=== PATIENT | female | born 1950 | race Caucasian/White ===

== ENCOUNTER 2017-08-15 08:09 | Inpatient (IN) | payer MEDICARE ==
[~2017-08-15] VITALS: Ht 160 cm; Wt 88.5 kg
[~2017-08-15 08:09] MED LIST: ASPIR 8181 M1 PO
[2017-08-15 08:10] VITALS: BP 148/72
[2017-08-15] MEDS ORDERED: BLOOD PRESSURE MED (08:13)
[2017-08-15] MEDS ORDERED: CHOLESTEROL MED (08:13)
[2017-08-15 09:56] LABS: HEMATOCRIT 42.3 % (37.0-47.0); HEMOGLOBIN 14.3 gm/dL (12.0-15.0); MCH 29.3 pg (26.0-34.0); MCHC 33.9 g/dL (28.0-37.0); MCV 86.5 fL (80.0-100.0); MPV 8.1 fl. (7.2-11.1); RBC 4.89 mil/uL (4.20-5.00); RDW-CV 13.3 % (10.5-14.5); WBC 12.5 thou/uL (4.0-11.0)
[2017-08-15 10:05] LABS: ANION GAP 8 mmol/L (7-16); BUN 17 mg/dL (7-18); CALCIUM 8.8 mg/dL (8.5-10.1); CHLORIDE 105 mmol/L (98-107); CO2 27 mmol/L (21-32); CREATININE 0.8 mg/dL (0.6-1.3); GLUCOSE 161 mg/dL (70-99); POTASSIUM 4.2 mmol/L (3.5-5.1); SODIUM 140 mmol/L (136-145)
[2017-08-15 10:12] LABS: ALBUMIN 3.6 g/dL (3.4-5.0); ALKALINE PHOSPHATASE 86 U/L (46-116); SGOT 24 U/L (15-37); SGPT 42 U/L (30-65); TOTAL BILIRUBIN 0.6 mg/dL (<0.1-1.0); TOTAL PROTEIN 7.2 g/dL (6.4-8.2); TROPONIN-I LEVEL <0.06 ng/mL (<0.06)
[2017-08-15 12:50] VITALS: BP 127/64
[2017-08-15 12:53] VITALS: BP 136/64
[2017-08-15 13:05] VITALS: BP 136/64
[2017-08-15 14:23] LABS: URINE BILIRUBIN NEGATIVE (Negative); URINE BLOOD NEGATIVE (Negative); URINE CLARITY CLEAR; URINE COLOR YELLOW; URINE GLUCOSE-RANDOM NEGATIVE (Negative); URINE KETONES 1+ (Negative); URINE LEUKOCYTES TRACE (Negative); URINE NITRITE NEGATIVE (Negative); URINE PROTEIN NEGATIVE (Negative); URINE UROBILINOGEN 0.2 E.U./dl (0.2-1.0)
[2017-08-15 14:29] LABS: BACTERIA None Seen /HPF (None Seen); CASTS None Seen /LPF (None Seen); CRYSTALS None Seen /LPF (None Seen); SQUAMOUS 0-3 Few /LPF (0-3); URINE RBC None Seen /HPF (0-2); URINE WBC 0-5 Rare /HPF (0-5)
--- NOTE | 2017-08-15 15:10 | EKG ---
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: : 1950 Requested By: Italo Garrison Order Number: [id number] MD: Josiah Peterson Measurements Intervals [place] Rate: 57 P: 35 CO: 169 QRS: 23 QRSD: 87 T: 23 QT: 420 QTc: 409 Interpretive Statements Sinus bradycardia Baseline wander in lead(s) II,III,aVF,V2 Compared to ECG 11/30/2015 11:09:25 rate slowed Electronically Signed On 08-15-2017 15:09:43 CDT by Josiah Peterson [email or web address] <ELECTRONICALLY SIGNED> By: Josiah Peterson MD, [facility] 08/15/17 1509 1100 1100 Josiah Peterson MD, [facility] /EPI
[2017-08-15 20:15] VITALS: BP 143/59
[2017-08-16 03:12] VITALS: BP 124/54
[2017-08-16 08:33] VITALS: BP 118/62
[2017-08-16] MEDS ORDERED: ASPIRIN325 PO (10:17)
[2017-08-16] MEDS ORDERED: OXYCODONE HCL 55 MG PO (10:17)
[2017-08-16 10:18] VITALS: BP 118/62
[2017-08-16] MEDS ORDERED: COLACE100 MG PO (10:25)
--- NOTE | 2017-08-29 13:41 | OP ---
[facility] [address] [place] [address] OPERATIVE REPORT Name: JIN NICHOLS Room: [address]#: [id number] Admission: 08/15/17 Attend Phys: Silvestre Lopez Discharge: 08/16/17 Date of : 54 Report #: [id number] THIS REPORT FOR: //name// CC: Heriberto Lozano DATE OF SERVICE: 08/15/2017 PREOPERATIVE DIAGNOSIS: Fracture dislocation, trimalleolar closed, right ankle. POSTOPERATIVE DIAGNOSES: 1. Closed trimalleolar fracture dislocation, right ankle. 2. Diastasis of syndesmotic ligament, right ankle. OPERATION PERFORMED: 1. Open reduction and internal fixation of trimalleolar fracture, right ankle. 2. Insertion of transmalleolar screw for diastasis of syndesmotic ligament, right ankle. 3. Physician directed fluoroscopy by Dr. Mckeon under 1 hour. ANESTHESIA: General. GROSS PATHOLOGY: There was evidence of a trimalleolar fracture of the right ankle, a fracture dislocation was noted, which had been previously reduced. There was marked osteoporosis about the bony substance. There is evidence of a diastasis. IMPLANTS UTILIZED: Alberto ankle fixation system. DESCRIPTION OF PROCEDURE: The patient was brought to the operating room where general anesthetic was administered. Preoperative antibiotics were given. A Hibiclens scrub and a ChloraPrep, prep were done to the right leg. The patient was draped in sterile manner. Incision was then made approximately 4-1/2 inches in length on the distal right fibula. It was carried down through the skin and subcuticular material by sharp dissection. By sharp and blunt dissection, the fracture site was identified. Periosteum was removed from the fracture site and soft tissue. It was reduced and held in place with a clamp. Semi-tubular plate was utilized. It was held in place. It is fixated with screws in the usual manner with 3.5 cortical and 4.0 cancellous. Attention was then turned to the medial malleolus where an incision made approximately 2 inches in length. It was carried down through the skin and subcuticular material by sharp dissection, the fracture site was identified. There was deltoid and other soft tissue synovium in the fracture site was removed. It was secured temporarily with K wires x 2 after the reduction. The outer cortex was reamed, 4.0 cancellous screws were placed over the guidewire to the appropriate depth with a washer x 1. The posterior malleolar fragment of the tibia reduced [place] [address] OPERATIVE REPORT Name: JIN NICHOLS Room: [address] IN M.R.#: [id number] Admission: 08/15/17 Attend Phys: Silvestre Lopez Discharge: 08/16/17 Date of : 54 Report #: [id number] positive cotton test. Because of this, one of the cortical screws was removed from the distal fibula plate region. The diastasis was held reduced. A 3.5 cortical screw was then placed across the ankle mortise in the usual manner after drilling with the guide drill. The ankle was stable. The deep tissues were closed with hard Vicryl suture, subcutaneous with 2-0 Vicryl and interrupted 3-0 nylon on the skin. Estimated blood loss was approximately 40 mL. The area was anesthetized with 30 mL of Marcaine 0.5% plain. The C-arm was used intermittently through surgery under my direction. Dioni Mendiola dressing, posterior new splints were applied. The patient was transferred to the recovery room in good condition. The wound was thoroughly irrigated through procedure and hemostasis maintained. <ELECTRONICALLY SIGNED> By: Jessee Mckeon DO 08/29/17 1341 15 [id number] Mckeon DO /nt
== END 2017-08-16 11:19 | disposition home or self-care (01) | DRG 493 ==
LOC: M.ERS 08:09 → M.TBA-ER 10:25 → M.ORTHSURG 10:25 → M.TBA-ER 11:46 → M.ORTHSURG 12:20
PROVIDERS: Emergency Medicine Emergency Medical Services; ADMIT Internal Medicine
PROC: 0QSG04Z Reposition Right Tibia with Internal Fixation Device, Open Approach (ICD-10-PCS; principal; 2017-08-15)
PROC: 0QSJ04Z Reposition Right Fibula with Internal Fixation Device, Open Approach (ICD-10-PCS; 2017-08-15)
PROC: 2W3QX1Z Immobilization of Right Lower Leg using Splint (ICD-10-PCS; 2017-08-15)
DX: S82.851A Displaced trimalleolar fracture of right lower leg, initial encounter for closed fracture (principal); N39.0 Urinary tract infection, site not specified; I10 Essential (primary) hypertension; E78.00 Pure hypercholesterolemia, unspecified; E78.5 Hyperlipidemia, unspecified; E66.9 Obesity, unspecified; W10.8XXA Fall (on) (from) other stairs and steps, initial encounter; Z88.6 Allergy status to analgesic agent; Z79.82 Long term (current) use of aspirin; Z68.34 Body mass index [BMI] 34.0-34.9, adult; Z79.2 Long term (current) use of antibiotics; Z79.899 Other long term (current) drug therapy; Z90.49 Acquired absence of other specified parts of digestive tract; Z98.890 Other specified postprocedural states; Y93.89 Activity, other specified; Y92.89 Other specified places as the place of occurrence of the external cause; Y99.8 Other external cause status

== ENCOUNTER → 2017-08-29 | Outpatient (CLI) | payer MEDICARE ==
[~2017-08-29] MED LIST changes: +ASPIRIN325 PO; +BLOOD PRESSURE MED; +CHOLESTEROL MED; +COLACE100 MG PO; +OXYCODONE HCL 55 MG PO
== END ==
LOC: M.RAD 08:08
DX: M81.0 Age-related osteoporosis without current pathological fracture (principal); Z78.0 Asymptomatic menopausal state

== ENCOUNTER → 2018-01-19 | Outpatient (CLI) | payer MEDICARE, MEDICAID | LOC: M.RAD 12:41 | DX: Z12.31 Encounter for screening mammogram for malignant neoplasm of breast (principal) ==

== ENCOUNTER → 2019-03-01 | Outpatient (CLI) | payer OTHER, MEDICAID | LOC: M.RAD 14:28 | DX: Z12.31 Encounter for screening mammogram for malignant neoplasm of breast (principal) ==

== ENCOUNTER → 2019-09-10 | Outpatient (CLI) | payer OTHER, MEDICAID | LOC: M.RAD 13:16 | PROVIDERS: ATTEND Family Medicine | DX: M81.0 Age-related osteoporosis without current pathological fracture (principal); N95.9 Unspecified menopausal and perimenopausal disorder ==

== ENCOUNTER 2019-09-26 12:20 | Emergency (ER) | payer OTHER, MEDICAID ==
[~2019-09-26] VITALS: Ht 160 cm; Wt 71.2 kg
[2019-09-26] MEDS ORDERED: LISINOPRIL2.5 MG PO (12:42)
[2019-09-26] MEDS ORDERED: METFORMIN HCL500 M3 PO (12:42)
[2019-09-26] MEDS ORDERED: CALCIUM500 M1 PO (12:43)
[2019-09-26 14:25] VITALS: BP 130/72
== END 2019-09-26 14:25 | disposition home or self-care (01) ==
LOC: M.ERS 12:20
DX: S62.317A Displaced fracture of base of fifth metacarpal bone, left hand, initial encounter for closed fracture (principal); Z90.49 Acquired absence of other specified parts of digestive tract; Z98.890 Other specified postprocedural states; Z88.6 Allergy status to analgesic agent; Z88.5 Allergy status to narcotic agent; W01.0XXA Fall on same level from slipping, tripping and stumbling without subsequent striking against object, initial encounter; Y93.89 Activity, other specified; Y92.89 Other specified places as the place of occurrence of the external cause; Y99.8 Other external cause status

== ENCOUNTER → 2020-06-16 | Outpatient (CLI) | payer OTHER, MEDICAID ==
[~2020-06-16] MED LIST changes: +CALCIUM500 M1 PO; +LISINOPRIL2.5 MG PO; +METFORMIN HCL500 M3 PO
== END ==
LOC: M.RAD 13:46
PROVIDERS: ATTEND Family Medicine
DX: Z12.31 Encounter for screening mammogram for malignant neoplasm of breast (principal)